=== PATIENT | male | born 1990 | race Caucasian/White ===

== ENCOUNTER 2023-12-01 11:22 | Emergency (ER) | payer OTHER, SELFPAY ==
[2023-12-01] VITALS (9 sets, daily range): BP systolic 112–132; BP diastolic 69–89; PULSE 70–94; RESP 14–20; TEMP 36.9; O2SAT 99–100; BMI 20.5
--- NOTE | 2023-12-01 11:37 | ED_ITS ---
HPI - Male Genitourinary General Chief complaint: Urogenital-Male Stated complaint: Hernia? Time Seen by Provider: 12/01/23 11:37 Source: patient Mode of arrival: Ambulatory History of Present Illness HPI Narrative: Patient is a 33-year-old male with no significant past medical history presents to the ED for evaluation of swelling redness and pain to his left inguinal region. States he noticed it a few months ago has gotten worse, thought that it might have been a hernia because he noticed that it felt like it was getting bigger as he was lifting something heavy yesterday. He denies any other symptoms at this time no dysuria hematuria, or other GI/ symptoms at this time. He states that he does shave regularly and does have a history of ingrown hairs. Not on any antibiotics at this time. Patient adamantly denies any pain to the actual testicle itself Related Data Previous Rx's Medication Instructions Recorded sulfamethoxazole 800 1 tab PO BID 7 days #14 tabs 12/01/23 mg-trimethoprim 160 mg tablet (Bactrim DS) Allergies Allergy/AdvReac Type Severity Reaction Status Date / Time No Known Drug Allergies Allergy Verified 12/01/23 11:34 Review of Systems Review of Systems Narrative: General: Denies fever, chills, weight loss HEENT: Denies headache, eye drainage, eye irritation, head trauma, sore throat, voice change Cardiovascular: Denies any chest pain, palpitations, shortness of breath, tachycardia Respiratory: Denies any shortness of breath, cough, wheeze, stridor GI/: Positive for left inguinal pain Denies any abdominal pain, nausea, vomiting, diarrhea, bright red blood per rectum, melanotic stools, urinary frequency, urinary retention, dysuria, hematuria MSK: Denies any joint pain, muscle pains, swelling Skin: Denies any rashes, lesions, discoloration Neuro: Denies any headache, lightheadedness, dizziness, fainting, weakness Psych: Denies SI/HI Patient History Social History Smoking Status: Current every day smoker Smoking Status: Current every day smoker tobacco type: vaping alcohol intake frequency: a few times a month Substance Use Type: does not use Exam Narrative Exam Narrative: General: Cooperative, comfortable, well-developed, not in acute distress HEENT: Normocephalic, atraumatic, PERRLA, normal sclera, eyelids normal, Neck: Active full range of motion, atraumatic Chest: Normal to inspection, negative crepitus, no overlying erythema ecchymosis Respiratory: Normal respiratory effort, not in acute respiratory distress, clear to auscultation bilaterally negative cough, wheeze, tachypnea, rhonchi, rales Cardiology: Regular rate rhythm negative gallop, murmur, rubs GI/: Normal to inspection, soft, nonrigid, no tenderness to palpation, exam (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 No overlying lesions noted, but there is tenderness to palpation fullness to the left inguinal region MSK: Full range of active range of motion of all 4 extremities, atraumatic Skin: No rashes lesions noted Neuro: Alert awake oriented x3, moves all 4 extremities spontaneously, cranial nerves intact, able to answer all questions appropriately follows commands appropriately Psych: Cooperative, negative suicidal or homicidal ideations Initial Vital Signs Initial Vital Signs: Vital Signs Temperature 98.4 F 12/01/23 11:27 Pulse Rate 94 H 12/01/23 11:27 Respiratory Rate 20 12/01/23 11:27 Blood Pressure 126/78 12/01/23 11:27 Pulse Oximetry 100 12/01/23 11:27 Oxygen Delivery Method Room Air 12/01/23 11:27 Course Orders Ordered: ED Orders 12/01/23 11:45 CT abdomen pelvis w con Stat 12/01/23 11:47 BMP [Basic Metabolic Panel] Stat CBC Auto Diff [Complete Blood Count AUTO DIFF] Stat Discontinued Medications Ketorolac Tromethamine (Ketorolac 30 Mg/Ml Vial) 15 mg IM NOW ONE Stop: 12/01/23 11:45 Last Admin: 12/01/23 12:01 Dose: Not Given Documented By: CESARIO Ketorolac Tromethamine (Ketorolac 30 Mg/Ml Vial) 15 mg IV NOW ONE Stop: 12/01/23 12:01 Last Admin: 12/01/23 12:08 Dose: 15 mg Documented By: CESARIO Trimethoprim/Sulfamethoxazole (Trimeth/Sulfa 160/800 (Ds) Tablet) 1 tab PO NOW ONE Stop: 12/01/23 13:09 Vital Signs Vital signs: Vital Signs - 8 hr 12/01/23 11:27 12/01/23 11:49 12/01/23 11:50 Temperature 98.4 F Pulse Rate 94 H Respiratory Rate 20 Blood Pressure 126/78 125/84 Pulse Oximetry 100 100 Oxygen Delivery Method Room Air 12/01/23 11:50 12/01/23 12:00 12/01/23 12:00 Temperature Pulse Rate 80 79 Respiratory Rate Blood Pressure 131/88 Pulse Oximetry 100 100 Oxygen Delivery Method 12/01/23 12:08 12/01/23 12:08 12/01/23 12:30 Temperature Pulse Rate 70 Respiratory Rate Blood Pressure 132/89 122/75 Pulse Oximetry 100 Oxygen Delivery Method 12/01/23 12:30 12/01/23 13:00 12/01/23 13:00 Temperature Pulse Rate 71 72 Respiratory Rate Blood Pressure 112/69 Pulse Oximetry 100 100 Oxygen Delivery Method MDM - Male Genitourinary Differential Diagnosis Differential diagnosis: Likely urinary tract infection, epididymitis, inguinal hernia and other ([place] , cellulitis) Lab Data 12/01/23 11:47 12/01/23 11:47 Labs: Lab Results 12/01/23 Range/Units 11:47 WBC 10.8 (4.5-11.0) X10^3/uL RBC 5.20 (4.5-5.9) X10^6/uL Hgb 15.9 (13.5-17.5) g/dL Hct 46.2 (41-53) % MCV 88.8 (80-100) fL MCH 30.7 (26-34) PG MCHC 34.5 (30-36) % RDW 13.2 (11.6-14.8) % Plt Count 217 (150-400) X10^3/uL Neut % (Auto) 78.6 H (50-75) % Lymph % (Auto) 12.5 L (25-40) % [place] % (Auto) 7.8 (3-14) % Eos % (Auto) 0.5 L (2-4) % Baso % (Auto) 0.6 (0-2) % Neut # (Auto) 8500 H (0161-5995) /uL Lymph # (Auto) 1400 (7035-2137) /uL [place] # (Auto) 800 (0-900) /uL Eos # (Auto) 100 (0-450) /uL Baso # (Auto) 100 (0-100) /uL Sodium 138 (137-145) mmol/L Potassium 4.2 (3.4-5.1) mmol/L Chloride 103 (98-107) mmol/L Carbon Dioxide 28 (22-32) mmol/L BUN 14 (9-20) mg/dL Creatinine 1.08 (0.66-1.25) mg/dL Estimated GFR > 60 (>60) mL/min BUN/Creatinine Ratio 13.0 (6-22) Glucose 101 H (70-100) mg/dL Calcium 9.3 (8.4-10.2) mg/dL Imaging Data CT scan - abdomen/pelvis: Radiologist's Impression: PROCEDURE: CT ABDOMEN PELVIS W CON INDICATIONS: Left inguinal pain with swelling and redness,r/o fourn[place] TECHNIQUE: After the administration of intravenous contrast, axial sections acquired from the lung bases to the pubic symphysis. Coronal and sagittal reformats were performed. For radiation dose reduction, the following was used: automated exposure control, adjustment of mA and/or kV according to patient size. COMPARISON: None. FINDINGS: Image quality: Diagnostic. Lower Chest: No significant findings. ABDOMEN: Liver: No solid mass. Gallbladder: No radiopaque gallstones or wall thickening. Biliary ducts: No biliary dilation. Pancreas: No ductal dilation. Spleen: Size is within normal limits. Adrenal Glands: No adrenal nodules. Kidneys and Ureters: No hydronephrosis. No solid mass. No complex renal cystic lesion which requires follow up. There is a 2 mm nonobstructing stone seen within the left kidney. Several foci of volume loss can be seen involving each kidney, right worse than left. Stomach and Bowel: Normal colonic caliber, without significant wall thickening. A normal appendix is noted. No dilated loops of small bowel are seen. Peritoneum: No abnormal intraperitoneal fluid. No free air. Ventral Wall: No significant ventral hernia. Abdominal Nodes: No retroperitoneal or mesenteric adenopathy by size criteria. Vessels: Aorta and inferior vena cava are normal in size. PELVIS: Pelvic Organs: Unremarkable. Bladder: No bladder wall thickening, accounting for underdistention. Pelvic Nodes: No enlarged lymph nodes. Miscellaneous: No inguinal hernias are seen. Focal soft tissue swelling can be seen involving the groin, with skin thickening and mild inflammatory change, with partial involvement of the left scrotal wall laterally, as on series 2, image 159 and on series 3, image 32. No fluid collections are seen to suggest abscess. Negative for soft tissue gas. Bones: No aggressive osseous abnormality. IMPRESSION: Left groin inflammatory change can be seen, which has the appearance of cellulitis. No abscess collection or soft tissue gas can be seen. Foci of volume loss can be seen involving the kidneys, please correlate with prior episodes of infarction or infection. Additional findings: 2 mm nonobstructing left-sided kidney stone Normal appendix MDM Narrative Medical decision making narrative: Patient is a 33-year-old male history of no significance presents for left inguinal redness pain for the past several weeks, does have a history of ingrown hair due to shaving, denies any systemic symptoms. Physical exam does not show inguinal hernia, but erythema and tenderness to palpation of the left inguinal region with no penile or surrounding lesions. Patient without any tenderness to palpation of the testicle or epididymis. CT scan showing cellulitis without abscess soft tissue and/or soft tissue gas, based off of imaging as well as physical exam more likely cellulitis. He will be started on Bactrim instructed to have strict return precautions he verbalized understanding of this agrees to being discharged home with outpatient follow up Discharge Plan Departure Patient Disposition: Home Clinical Impression: Cellulitis Activity Restrictions/Additional Instructions: Please follow-up with your primary care doctor Please read the discharge instructions sheet carefully and bring all papers to all doctor follow-up visits, as it may contain information that your doctor may want to see. Disease processes change and evolve, if your symptoms worsen or if you develop any new symptoms that are concerning to you please return for evaluation. Your evaluation today does not show any evidence of any life- threatening/serious illnesses requiring admission to the hospital or surgery. Please follow-up with your doctor for re-evaluation in approximately 1 day. Seek immediate medical attention for any worrisome symptoms. Prescriptions: New sulfamethoxazole-trimethoprim [Bactrim DS] 800-160 mg tablet 1 tab PO BID 7 Days Qty: 14 0RF Stand Alone Forms: Patient Portal/API
--- NOTE | 2023-12-01 11:45 | DI.CT.S_ITS ---
PROCEDURE: CT ABDOMEN PELVIS W CON INDICATIONS: Left inguinal pain with swelling and redness,r/o fourniers TECHNIQUE: After the administration of intravenous contrast, axial sections acquired from the lung bases to the pubic symphysis. Coronal and sagittal reformats were performed. For radiation dose reduction, the following was used: automated exposure control, adjustment of mA and/or kV according to patient size. COMPARISON: None. FINDINGS: Image quality: Diagnostic. Lower Chest: No significant findings. ABDOMEN: Liver: No solid mass. Gallbladder: No radiopaque gallstones or wall thickening. Biliary ducts: No biliary dilation. Pancreas: No ductal dilation. Spleen: Size is within normal limits. Adrenal Glands: No adrenal nodules. Kidneys and Ureters: No hydronephrosis. No solid mass. No complex renal cystic lesion which requires follow up. There is a 2 mm nonobstructing stone seen within the left kidney. Several foci of volume loss can be seen involving each kidney, right worse than left. Stomach and Bowel: Normal colonic caliber, without significant wall thickening. A normal appendix is noted. No dilated loops of small bowel are seen. Peritoneum: No abnormal intraperitoneal fluid. No free air. Ventral Wall: No significant ventral hernia. Abdominal Nodes: No retroperitoneal or mesenteric adenopathy by size criteria. Vessels: Aorta and inferior vena cava are normal in size. PELVIS: Pelvic Organs: Unremarkable. Bladder: No bladder wall thickening, accounting for underdistention. Pelvic Nodes: No enlarged lymph nodes. Miscellaneous: No inguinal hernias are seen. Focal soft tissue swelling can be seen involving the groin, with skin thickening and mild inflammatory change, with partial involvement of the left scrotal wall laterally, as on series 2, image 159 and on series 3, image 32. No fluid collections are seen to suggest abscess. Negative for soft tissue gas. Bones: No aggressive osseous abnormality. IMPRESSION: Left groin inflammatory change can be seen, which has the appearance of cellulitis. No abscess collection or soft tissue gas can be seen. Foci of volume loss can be seen involving the kidneys, please correlate with prior episodes of infarction or infection. Additional findings: 2 mm nonobstructing left-sided kidney stone Normal appendix Dictated by: Remy Pastor M.D. on 12/01/2023 at 11:41 Approved by: Remy Pastor M.D. on 12/01/2023 at 11:45
[2023-12-01 12:01] LABS: Add Manual Diff / Slide Review NO; Basophils Absolute Auto 100 /uL (0-100); Basophils Percent Auto 0.6 % (0-2); Eosinophils Absolute Auto 100 /uL (0-450); Eosinophils Percent Auto 0.5 % (2-4); Hematocrit 46.2 % (41-53); Hemoglobin 15.9 g/dL (13.5-17.5); Lymphocytes Absolute Auto 1400 /uL (1100-4500); Lymphocytes Percent Auto 12.5 % (25-40); Mean Corpuscular HGB Conc 34.5 % (30-36); Mean Corpuscular Hemoglobin 30.7 PG (26-34); Mean Corpuscular Volume 88.8 fL (80-100); Monocytes Absolute Auto 800 /uL (0-900); Monocytes Percent Auto 7.8 % (3-14); Neutrophils Absolute Auto 8500 /uL (1500-7000); Neutrophils Percent Auto 78.6 % (50-75); Platelet Count 217 X10^3/uL (150-400); Red Cell Distribution Width 13.2 % (11.6-14.8); White Blood Cell Count 10.8 X10^3/uL (4.5-11.0)
[2023-12-01 12:07] LABS: Blood Urea Nitrogen 14 mg/dL (9-20); Calcium 9.3 mg/dL (8.4-10.2); Carbon Dioxide 28 mmol/L (22-32); Chloride 103 mmol/L (98-107); Estimated Glomerular Filt Rate > 60 mL/min (>60); Glucose 101 mg/dL (70-100); HEMOLYSIS 24 (0-50); Potassium 4.2 mmol/L (3.4-5.1); Sodium 138 mmol/L (137-145)
[2023-12-01] MEDS: KETOROLAC 30 MG/ML VIAL 15 MG IV (12:08)
[2023-12-01] MEDS: TRIMETH/SULFA 160/800 (DS) TABLET 1 TAB PO (13:52)
== END 2023-12-01 14:01 | disposition home or self-care (01) ==
PROVIDERS: Emergency Provider Student in an Organized Health Care Education/Training Program
DX: L03.116 Cellulitis of left lower limb (principal); N50.812 Left testicular pain
CPT/HCPCS: 36415; 74177; 80048; 85025; 96374; 99284; J1885; Q9967

== ENCOUNTER 2023-12-03 22:06 | Emergency (ER) | payer OTHER, SELFPAY ==
[2023-12-03 22:11] VITALS: BP 139/83; PULSE 75; RESP 18; TEMP 37; O2SAT 100; BMI 20.5
[2023-12-03 22:51] VITALS: BP 129/81; PULSE 71; O2SAT 93
[2023-12-03 23:00] VITALS: BP 119/74; PULSE 74; O2SAT 96
--- NOTE | 2023-12-03 23:18 | ED_ITS ---
HPI - Skin/Abscess/Foreign Bdy General Chief complaint: Skin/Abscess/Foreign Body Stated complaint: returning; cellulitis, spreading Time Seen by Provider: 12/03/23 22:58 Source: patient Mode of arrival: Ambulatory Limitations: no limitations History of Present Illness HPI narrative: Patient is a 33-year-old male who is seen here in the emergency department just a couple days ago and was diagnosed with a cellulitis to his left inguinal region. There was no abscess. Had CT scan performed. Was sent home with a prescription for antibiotics. He was only been on this antibiotic for just under 48 hours. He returns to the emergency department today stating that he feels like the discomfort in his left groin in the infection has potentially worsening. He states that it was now more firm than what it once was. It was not draining. He states there other areas that seemed to be actually improving. He has no fevers. No abdominal pain. No testicular pain. No problems urinating. He was no concern for an STD. He was tolerating the antibiotics without difficulty. Related Data Previous Rx's Medication Instructions Recorded sulfamethoxazole 800 1 tab PO BID 7 days #14 tabs 12/01/23 mg-trimethoprim 160 mg tablet (Bactrim DS) Allergies Allergy/AdvReac Type Severity Reaction Status Date / Time No Known Drug Allergies Allergy Verified 12/01/23 11:34 Review of Systems Review of Systems ROS Unobtainable: All systems reviewed & are unremarkable except as noted in HPI and below Patient History Social History Smoking Status: Current every day smoker Smoking Status: Current every day smoker tobacco type: vaping alcohol intake frequency: a few times a month Substance Use Type: does not use Exam Initial Vital Signs Initial Vital Signs: Vital Signs Temperature 98.6 F 12/03/23 22:11 Pulse Rate 75 12/03/23 22:11 Respiratory Rate 18 12/03/23 22:11 Blood Pressure 139/83 12/03/23 22:11 Pulse Oximetry 100 12/03/23 22:11 Oxygen Delivery Method Room Air 12/03/23 22:11 Const General: cooperative, comfortable and No ill appearing Resp Effort & Inspection: normal respiratory effort Cardio Rate: regular rate GI Inspection: normal to inspection and non-distended Palpation: soft and No tender External: normal external exam and circumcised Penis: normal penis Scrotum: scrotum normal Testes: normal Skin Other: Patient has obvious signs of an infection in his left inguinal region. There is induration in the area. There is some erythema noted in the region. No vesicles. No pustules. Extrem General: normal to inspection Course Orders Ordered: ED Orders 12/03/23 23:24 CT pelvis w con Stat 12/03/23 23:34 Basic Metabolic Panel Stat Complete Blood Count AUTO DIFF Stat Discontinued Medications Ceftriaxone Sodium 2,000 mg/ (Sodium Chloride) 100 mls @ 200 mls/hr IV NOW ONE Stop: 12/04/23 01:21 Last Infusion: 12/04/23 02:03 Dose: Infused Documented By: Admin: 12/04/23 01:27 Dose: 200 mls/hr Documented By: NUSRAT Vital Signs Vital signs: Vital Signs - 8 hr 12/03/23 22:11 12/03/23 22:51 12/03/23 22:51 Temperature 98.6 F Pulse Rate 75 71 Respiratory Rate 18 Blood Pressure 139/83 129/81 Pulse Oximetry 100 93 Oxygen Delivery Method Room Air 12/03/23 23:00 12/03/23 23:00 12/03/23 23:30 Temperature Pulse Rate 74 74 Respiratory Rate Blood Pressure 119/74 Pulse Oximetry 96 98 Oxygen Delivery Method 12/03/23 23:30 12/03/23 23:53 12/03/23 23:53 Temperature Pulse Rate 74 Respiratory Rate Blood Pressure 126/76 132/83 Pulse Oximetry 98 Oxygen Delivery Method 12/04/23 00:00 12/04/23 00:00 12/04/23 00:30 Temperature Pulse Rate 70 69 Respiratory Rate Blood Pressure 113/69 Pulse Oximetry 99 97 Oxygen Delivery Method 12/04/23 00:30 12/04/23 01:00 12/04/23 01:00 Temperature Pulse Rate 66 Respiratory Rate 18 Blood Pressure 113/69 107/72 Pulse Oximetry 97 Oxygen Delivery Method 12/04/23 01:30 12/04/23 01:30 Temperature Pulse Rate 68 Respiratory Rate 18 Blood Pressure 105/72 Pulse Oximetry 98 Oxygen Delivery Method MDM - Skin/Abscess/Foreign Bdy Lab Data Attestation: I reviewed the patient's lab results. 12/03/23 23:34 12/03/23 23:34 Labs: Lab Results 10/15/24 Range/Units 23:34 WBC 9.8 (4.5-11.0) X10^3/uL RBC 4.52 (4.5-5.9) X10^6/uL Hgb 13.9 (13.5-17.5) g/dL Hct 39.5 L (41-53) % MCV 87.3 (80-100) fL MCH 30.7 (26-34) PG MCHC 35.2 (30-36) % RDW 13.0 (11.6-14.8) % Plt Count 214 (150-400) X10^3/uL Neut % (Auto) 71.4 (50-75) % Lymph % (Auto) 20.0 L (25-40) % [place] % (Auto) 7.0 (3-14) % Eos % (Auto) 0.9 L (2-4) % Baso % (Auto) 0.7 (0-2) % Neut # (Auto) 7000 (7162-6627) /uL Lymph # (Auto) 2000 (9229-5768) /uL [place] # (Auto) 700 (0-900) /uL Eos # (Auto) 100 (0-450) /uL Baso # (Auto) 100 (0-100) /uL Sodium 135 L (137-145) mmol/L Potassium 3.8 (3.4-5.1) mmol/L Chloride 101 (98-107) mmol/L Carbon Dioxide 26 (22-32) mmol/L BUN 14 (9-20) mg/dL Creatinine 1.32 H (0.66-1.25) mg/dL Estimated GFR > 60 (>60) mL/min BUN/Creatinine Ratio 10.6 (6-22) Glucose 95 (70-100) mg/dL Calcium 9.0 (8.4-10.2) mg/dL Imaging Data CT pelvis: Radiologist's Impression: PROCEDURE: CT PELVIS W CON INDICATIONS: Left groin worsening cellulitis TECHNIQUE: After the administration of intravenous contrast, 5 mm thick sections acquired from the iliac crests to the symphysis. 5 mm coronal and sagittal reformats were acquired. For radiation dose reduction, the following was used: automated exposure control, adjustment of mA and/or kV according to patient size. COMPARISON: [facility], CT, CT ABDOMEN PELVIS W CON, 12/01/2023, 12:03. FINDINGS: Image quality: Diagnostic. Bones: No acute fracture or dislocation. Joints: The hip joints and sacroiliac joints are preserved. The pubic symphysis is preserved. Muscles: Overall muscle bulk is preserved. Vessels: Visualized arterial vasculature is patent without aneurysmal dilatation Lymph nodes: No bilateral inguinal or lower retroperitoneal lymphadenopathy. Other soft tissues: Moderately distended urinary bladder measuring up to 12.1 cm in the craniocaudal dimension (). Intrapelvic contents otherwise within normal limits. Other: Small soft tissue fat stranding along the left inguinal/groin region (05/13). No subcutaneous emphysema or drainable fluid collection. IMPRESSION: Similar left inguinal fat stranding, which can be seen with cellulitis. No abscess or subcutaneous emphysema. MDM Narrative Medical decision making narrative: Patient was not tachycardic, not febrile. He was tolerating the antibiotics. He does not have a leukocytosis. He was well-appearing. He was an obvious cellulitis to his left inguinal region. Repeat CT scan his pelvis today does not show a deep infection or gas in the area. There was no abscess noted on the CT scan either. Bedside ultrasound shows potential very small abscess but appears to be less than 1 cm in all diameters. He does report improvement in some of his symptoms over the past 24 hours but feels like it is becoming more firm than what it was. He was only been on antibiotics for just under 48 hours. I had a discussion with him regarding options. We did discuss the possibility that he was failing outpatient antibiotic treatment however we both acknowledged that he really has not been on antibiotics for an adequate amount of time. We discussed options to include incising the area and draining what little abscess could potentially be in the area. We discussed discharge home as he does have a follow-up with his medical department in approximately 12 hours. After this extensive discussion the patient opted to hold on any drainage for now. We will hold on changing any antibiotics. He will keep his follow-up appointment. He understands that if his symptoms worsen and this potentially could happened as he may have a developing abscess that he would need to return to the emergency department. He expressed understanding and agreement with this plan. Discharge Plan Departure Patient Disposition: Home Clinical Impression: Cellulitis Instructions: DI for Cellulitis -- Adult Activity Restrictions/Additional Instructions: Continue to take all of your antibiotics as directed. Keep your scheduled follow-up appointment with your primary doctor later this afternoon. Return to the emergency department for worsening symptoms like we discussed. Prescriptions: No Action sulfamethoxazole-trimethoprim [Bactrim DS] 800-160 mg tablet 1 tab PO BID 7 Days Qty: 14 0RF Stand Alone Forms: Patient Portal/API, Work Release Note
--- NOTE | 2023-12-03 23:19 | PC.NURSE ---
Patient reports new area of redness that has spread from his prior visit where he was dx with cellulitis, redness is extending up the crease in his left groin and onto his upper thigh. Patient has been taking ibuprofen and that has helped with the pain, last dose at 1200 today 600mg
--- NOTE | 2023-12-03 23:24 | DI.CT.S_ITS ---
PROCEDURE: CT PELVIS W CON INDICATIONS: Left groin worsening cellulitis TECHNIQUE: After the administration of intravenous contrast, 5 mm thick sections acquired from the iliac crests to the symphysis. 5 mm coronal and sagittal reformats were acquired. For radiation dose reduction, the following was used: automated exposure control, adjustment of mA and/or kV according to patient size. COMPARISON: [facility], CT, CT ABDOMEN PELVIS W CON, 12/01/2023, 12:03. FINDINGS: Image quality: Diagnostic. Bones: No acute fracture or dislocation. Joints: The hip joints and sacroiliac joints are preserved. The pubic symphysis is preserved. Muscles: Overall muscle bulk is preserved. Vessels: Visualized arterial vasculature is patent without aneurysmal dilatation Lymph nodes: No bilateral inguinal or lower retroperitoneal lymphadenopathy. Other soft tissues: Moderately distended urinary bladder measuring up to 12.1 cm in the craniocaudal dimension (4/67). Intrapelvic contents otherwise within normal limits. Other: Small soft tissue fat stranding along the left inguinal/groin region (3/26). No subcutaneous emphysema or drainable fluid collection. IMPRESSION: Similar left inguinal fat stranding, which can be seen with cellulitis. No abscess or subcutaneous emphysema. Dictated by: Aaron Montiel M.D. on 12/04/2023 at 0:43 Approved by: Aaron Montiel M.D. on 12/04/2023 at 0:48
[2023-12-03 23:30] VITALS: BP 126/76; PULSE 74; O2SAT 98
[2023-12-03 23:42] LABS: Add Manual Diff / Slide Review NO; Basophils Absolute Auto 100 /uL (0-100); Basophils Percent Auto 0.7 % (0-2); Eosinophils Absolute Auto 100 /uL (0-450); Eosinophils Percent Auto 0.9 % (2-4); Hematocrit 39.5 % (41-53); Hemoglobin 13.9 g/dL (13.5-17.5); Lymphocytes Absolute Auto 2000 /uL (1100-4500); Mean Corpuscular HGB Conc 35.2 % (30-36); Mean Corpuscular Hemoglobin 30.7 PG (26-34); Mean Corpuscular Volume 87.3 fL (80-100); Monocytes Absolute Auto 700 /uL (0-900); Neutrophils Absolute Auto 7000 /uL (1500-7000); Neutrophils Percent Auto 71.4 % (50-75); Platelet Count 214 X10^3/uL (150-400); Red Blood Cell Count 4.52 X10^6/uL (4.5-5.9); White Blood Cell Count 9.8 X10^3/uL (4.5-11.0)
[2023-12-03 23:53] VITALS: BP 132/83; PULSE 74; O2SAT 98
[2023-12-03 23:56] LABS: BUN Creatinine Ratio 10.6 (6-22); Blood Urea Nitrogen 14 mg/dL (9-20); Carbon Dioxide 26 mmol/L (22-32); Chloride 101 mmol/L (98-107); Estimated Glomerular Filt Rate > 60 mL/min (>60); Glucose 95 mg/dL (70-100); HEMOLYSIS < 15 (0-50); Potassium 3.8 mmol/L (3.4-5.1); Sodium 135 mmol/L (137-145)
[2023-12-04] VITALS: BP 113/69; PULSE 70; O2SAT 99
[2023-12-04 00:30] VITALS: BP 113/69; PULSE 69; RESP 18; O2SAT 97
[2023-12-04 01:00] VITALS: BP 107/72; PULSE 66; O2SAT 97
[2023-12-04] MEDS: cefTRIAXone 2,000 MG in SODIUM CHLORIDE 0.9% 100 ML 200 MG IV (01:27)
[2023-12-04 01:30] VITALS: BP 105/72; PULSE 68; RESP 18; O2SAT 98
== END 2023-12-04 02:04 | disposition home or self-care (01) ==
PROVIDERS: Emergency Provider Emergency Medicine
DX: L03.314 Cellulitis of groin (principal)
CPT/HCPCS: 36415; 72193; 80048; 85025; 96365; 99284; J0696; Q9967

== ENCOUNTER 2023-12-22 08:52 | Emergency (ER) | payer OTHER, SELFPAY ==
[2023-12-22 09:14] VITALS: BP 130/80; PULSE 91; RESP 14; TEMP 37.1; O2SAT 100; BMI 20.5
--- NOTE | 2023-12-22 11:06 | ED.SKABFB ---
HPI - Skin/Abscess/Foreign Bdy <Octavia Moyer PA-C - Last Filed: 12/22/23 19:11> General Chief complaint: Skin/Abscess/Foreign Body Stated complaint: absess in groin infection Time Seen by Provider: 12/22/23 11:15 Source: patient Mode of arrival: Family Vehicle Limitations: no limitations History of Present Illness HPI narrative: Mr. Cano is a pleasant 33-year-old male with no reported past medical history who presents to the emergency department for evaluation of a prior left groin skin infection. Patient was seen in the emergency department on 12/01/2023 and 12/03/2023 for cellulitis of the left inguinal region. He completed a course of Bactrim and reports resolution of the infection. 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 He denies fevers, chills, abdominal pain, testicular pain, dysuria, penile discharge, increased warmth or swelling in the left inguinal region. Related Data Previous Rx's Medication Instructions Recorded chlorhexidine gluconate 4 % 1 applic topical DAILY 7 days #946 12/22/23 topical liquid (Antiseptic Skin mL Cleanser (chlorhexidine)) doxycycline hyclate 100 mg capsule 100 mg PO BID 7 days #14 caps 12/22/23 Allergies Allergy/AdvReac Type Severity Reaction Status Date / Time No Known Drug Allergies Allergy Verified 12/22/23 09:18 Review of Systems <Octavia Moyer PA-C - Last Filed: 12/22/23 19:11> Review of Systems ROS Unobtainable: All systems reviewed & are unremarkable except as noted in HPI and below Patient History <Octavia Moyer PA-C - Last Filed: 12/22/23 19:11> Social History Smoking Status: Current every day smoker Smoking Status: Current every day smoker tobacco type: vaping alcohol intake frequency: holidays/special occasions only Substance Use Type: does not use Exam <Octavia Moyer PA-C - Last Filed: 12/22/23 19:11> Narrative Exam Narrative: GENERAL: 33 year old patient appears stated age. Well-developed patient, in no acute distress. HEAD: Atraumatic. Normocephalic. CARDIOVASCULAR: Regular rate and rhythm. RESPIRATORY: Clear to auscultation. Breath sounds equal bilaterally. No wheezes, rales, or rhonchi. GASTROINTESTINAL: Left inguinal crease with small palpable lymph nodes. No overlying cellulitis or abscess. No hernia. Normal appearing penis and testes with no erythema or swelling. Abdomen soft, non-tender, nondistended. EXTREMITIES: No edema or joint tenderness. NEURO: AOx3. SKIN: No rash or erythema of visible areas Initial Vital Signs Initial Vital Signs: Vital Signs Temperature 98.7 F 12/22/23 09:14 Pulse Rate 91 H 12/22/23 09:14 Respiratory Rate 14 12/22/23 09:14 Blood Pressure 130/80 12/22/23 09:14 Pulse Oximetry 100 12/22/23 09:14 Oxygen Delivery Method Room Air 12/22/23 09:14 <Kat Antony DO - Last Filed: 12/26/23 08:19> Initial Vital Signs Initial Vital Signs: Vital Signs Temperature 98.7 F 12/22/23 09:14 Pulse Rate 91 H 12/22/23 09:14 Respiratory Rate 14 12/22/23 09:14 Blood Pressure 130/80 12/22/23 09:14 Pulse Oximetry 100 12/22/23 09:14 Oxygen Delivery Method Room Air 12/22/23 09:14 Course <Octavia Moyer PA-C - Last Filed: 12/22/23 19:11> Vital Signs Vital signs: Vital Signs - 8 hr 12/22/23 11:13 Pulse Rate 71 Respiratory Rate 10 L Blood Pressure 130/84 Pulse Oximetry 99 Oxygen Delivery Method Room Air <DO Elisha Bill Last Filed: 12/26/23 08:19> Vital Signs Vital signs: Vital Signs - 8 hr 12/22/23 11:13 Pulse Rate 71 Respiratory Rate 10 L Blood Pressure 130/84 Pulse Oximetry 99 Oxygen Delivery Method Room Air MDM - Skin/Abscess/Foreign Bdy <SHIRLEY Mabry Last Filed: 12/22/23 19:11> MDM Narrative Medical decision making narrative: 33-year-old male with no reported past medical history who presents to the emergency department for evaluation of a prior left groin skin infection. Differential diagnosis includes but is not limited to cellulitis, abscess, inguinal hernia, lymphadenopathy, etc. On exam patient is in no acute distress, nontoxic-appearing, all vital signs within normal limits. Physical exam reveals very minimal lymphadenopathy in the left inguinal region. Approximately 3 subcentimeter nodes palpated. Overlying skin is not indurated, tender or with increased warmth. No cellulitic changes or abscess. After shared decision-making with the patient, we will prescribe a course of doxycycline in the setting that this area becomes more tender or red however at this time no signs of active infection & suspect residual enlarged lymph nodes from recent infection. I prescribed him Hibiclens wash to start using now to cleanse area. Patient understands to follow up with the primary care doctor for re-evaluation and return to the ED immediately for any new or worsening symptoms. Patient is stable for discharge. Discharge Plan Departure Patient Disposition: Home Clinical Impression: Left inguinal pain Instructions: DI for Cellulitis -- Adult Activity Restrictions/Additional Instructions: Today you were evaluated for healing skin infection in the left groin. I do not see any signs of any active skin infection or abscess today, however I have prescribed a course of antibiotics and antibacterial body wash to use. If the area become more painful, red, or warm you may start taking the antibiotics and see a doctor immediately. Please follow up with a primary care doctor for re-evaluation and return to the ER with any concerns. Prescriptions: New chlorhexidine gluconate [Antiseptic Skin Clnsr(chlorhe)] 4 % liquid 1 applic topical DAILY 7 Days Qty: 946 0RF doxycycline hyclate 100 mg capsule 100 mg PO BID 7 Days Qty: 14 0RF Stand Alone Forms: Patient Portal/API/Survey ED Sign-out <Kat Antony DO - Last Filed: 12/26/23 08:19> Cosign ED Attending Cosignature Attestation: I was available for consultation.
[2023-12-22 11:13] VITALS: BP 130/84; PULSE 71; RESP 10; O2SAT 99
--- NOTE | 2023-12-22 11:15 | PC.NURSE ---
Evaluated, treated, and discharged by provider prior to nursing assessment.
== END 2023-12-22 11:18 | disposition home or self-care (01) ==
PROVIDERS: Emergency Provider Physician Assistant
DX: R10.32 Left lower quadrant pain (principal)
CPT/HCPCS: 99281